=== PATIENT | female | born 1965 | race Caucasian/White ===

== ENCOUNTER 2020-01-31 12:42 | Outpatient (CLI) | payer OTHER | END 2020-01-31 23:59 | disposition home or self-care (01) | LOC: RAD 12:42 | PROVIDERS: ATTEND Nurse Practitioner Family | DX: K21.9 Gastro-esophageal reflux disease without esophagitis (principal); R13.14 Dysphagia, pharyngoesophageal phase | CPT/HCPCS: 74230 ==

== ENCOUNTER 2020-02-09 07:32 | Emergency (ER) | payer OTHER ==
[~2020-02-09] VITALS: Ht 162.6 cm; Wt 54.5 kg
[2020-02-09] MEDS ORDERED: LORA-269 PO (07:59)
[2020-02-09 08:09] VITALS: BP 111/75
== END 2020-02-09 08:11 | disposition home or self-care (01) ==
LOC: ER 07:33
DX: F41.9 Anxiety disorder, unspecified (principal); Z79.899 Other long term (current) drug therapy
CPT/HCPCS: 99283

== ENCOUNTER 2020-04-09 01:03 | Inpatient (IN) | payer OTHER ==
[2020-04-09] VITALS (18 sets, daily range): BP systolic 101–126; BP diastolic 45–79
[~2020-04-09] VITALS: Ht 162.6 cm; Wt 60.5 kg
[~2020-04-09 01:03] MED LIST: LORA-269 PO
[2020-04-09] MEDS ORDERED: fentaNYL/PF 50MCG/1 ML 2ML syringe IV ONE (01:10)
[2020-04-09] MEDS ORDERED: ondansetron/PF 4mg/2ml inj IV ONE (02:05)
[2020-04-09] MEDS ORDERED: morphine 10mg/ml inj. IV ONE (02:05)
[2020-04-09 02:22] LABS: BASOPHILS % (AUTO) 0.4 % (0-1); EOSINOPHILS % (AUTO) 0.1 % (0-6); HEMATOCRIT 37.2 % (35.0-45.0); HEMOGLOBIN 12.3 g/dl (12.0-16.0); LYMPHOCYTES # (AUTO) 0.8 X10'3 (1.1-4.8); LYMPHOCYTES % (AUTO) 6.1 % (21-51); MEAN CORPUSCULAR HEMOGLOBIN 28.1 PG (27.0-31.0); MEAN CORPUSCULAR HGB CONC 33.2 g/dL (33.0-36.5); MEAN CORPUSCULAR VOLUME 84.7 FL (78-98); MEAN PLATELET VOLUME 6.5 FL (7.4-10.4); MONOCYTES # (AUTO) 0.7 X10'3 (0-0.9); NEUTROPHILS # (AUTO) 11.6 X10'3 (1.8-7.7); NEUTROPHILS % (AUTO) 88.4 % (42-75); PLATELET COUNT 296 X10'3 (140-440); RED BLOOD COUNT 4.39 X10'6 (4.20-5.60); RED CELL DISTRIBUTION WIDTH 15.7 % (11.5-14.5); WHITE BLOOD COUNT 13.1 X10'3 (4.5-11.0)
[2020-04-09 02:32] LABS: ALBUMIN 3.6 G/DL (3.4-5.0); ANION GAP 8 (8-16); BLOOD UREA NITROGEN 15 MG/DL (7-18); BUN/CREATININE RATIO 28.3 (6.6-38.0); CALCIUM 8.9 MG/DL (8.5-10.1); CHLORIDE 108 MMOL/L (99-107); CREATININE 0.53 MG/DL (0.40-0.90); GLUCOSE 120 MG/DL (70-104); SODIUM 144 MMOL/L (135-145); TOTAL CARBON DIOXIDE 28.2 MMOL/L (24-32); eGFR > 90 ML/MIN
[2020-04-09] MEDS ORDERED: magnesium Cl slow-release 64mg tablet PO PRN (02:40)
[2020-04-09] MEDS ORDERED: magnesium 2GM in 50ml NS 50 ML IV PRN (02:40)
[2020-04-09] MEDS ORDERED: magnesium 4gm in 100ml NS 100 ML IV PRN (02:40)
[2020-04-09] MEDS ORDERED: potassium Cl 20 mEq SR tablet PO PRN ×2 (02:40)
[2020-04-09] MEDS ORDERED: acetaminophen 325mg tablet PO PRN (02:40)
[2020-04-09] MEDS ORDERED: ondansetron/PF 4mg/2ml inj IV PRN ×2 (02:40→08:05)
[2020-04-09] MEDS ORDERED: potassium Cl 40MEQ/1/2NS 520ml 520 ML IV PRN ×2 (02:40)
[2020-04-09] MEDS ORDERED: ESCI5TAB PO (02:45)
[2020-04-09] MEDS ORDERED: OMEP40CA13 PO (02:46)
[2020-04-09] MEDS: normal saline 1000ml 1,000 ML IV SCH ×3 (03:46→20:39)
[2020-04-09] MEDS: morphine 2 MG/ML inj. syringe IV PRN (03:46)
[2020-04-09 03:57] LABS: CLARITY,URINE CLEAR (Clear); GLUCOSE, URINE NEGATIVE (Neg); KETONES,URINE TRACE mg/dl (Neg); LEUKOCYTE ESTERASE ,URINE TRACE (Neg); NITRITES, URINE NEGATIVE (Neg); OCCULT BLOOD,URINE TRACE-INTACT (Neg); PH,URINE 6.5 (4.8-8.0); PROTEIN,URINE NEGATIVE (Neg); UROBILINOGEN,URINE 0.2 E.U/dL (0.2-1.0)
[2020-04-09 03:59] LABS: COLOR,URINE YELLOW (Yellow); UA COLLECTION TYPE FOLEY CATH
[2020-04-09 04:02] LABS: RBC,URINE 0-2 /HPF (0-2)
[2020-04-09 04:03] LABS: BACTERIA,URINE FEW /HPF (Neg); MUCUS STRANDS FEW /LPF (Neg); SQUAMOUS EPITHELIAL CELL,UR FEW /LPF (FEW)
--- NOTE | 2020-04-09 04:20 | NUR ---
Received report from Jigna BECK from the ER. Patient arrived on the unit at 0420 on a gurney,N.S at 100, room air, a/o, no signs of distress will continue to monitor
[2020-04-09] MEDS ORDERED: HYDROmorphone 1 mg/ml syringe IV ONE (04:55)
--- NOTE | 2020-04-09 06:30 | NUR ---
Patient in room [id number]. I have received report from NIKIA BECK and had the opportunity to ask questions and assume patient care.
--- NOTE | 2020-04-09 06:30 | NUR ---
Patient in room [id number]. I have received report from NIKIA BECK and had the opportunity to ask questions and assume patient care.
[2020-04-09] MEDS: HYDROmorphone 1 mg/ml syringe IV PRN ×3 (07:23→17:52)
[2020-04-09] MEDS: CefTRIAXone/D5W-Rocephin 1gm 50 ML IV SCH (07:23)
[2020-04-09] MEDS ORDERED: pantoprazole 40mg Tablet.DR PO SCH (07:30)
[2020-04-09] MEDS: ESCITALOPRAM OXALATE 5 MG TABLET PO SCH (07:39)
[2020-04-09] MEDS: lansoprazole 15mg solutab PO SCH (07:41)
[2020-04-09] MEDS: K and/or MAG REPLACEMENT MC SCH ×2 (08:00→20:00)
[2020-04-09] MEDS ORDERED: CefTRIAXone/D5W-Rocephin 1gm 50 ML IV SCH (08:00)
[2020-04-09] MEDS ORDERED: morphine 4 MG/ML inj SYRINge IV PRN (08:05)
[2020-04-09] MEDS ORDERED: ringers solution, lacted 1,000 ML IV SCH (08:05)
[2020-04-09] MEDS ORDERED: hydrALAZINE 20mg/ml inj. IV PRN (08:05)
[2020-04-09] MEDS ORDERED: fentaNYL/PF 50MCG/1 ML 2ML syringe IV PRN ×2 (08:05)
[2020-04-09] MEDS ORDERED: ringers solution, lacted 1,000 ML IV ONE (08:05)
[2020-04-09] MEDS ORDERED: labetalol 20mg/4ml (5mg/ml) syringe IV PRN (08:05)
[2020-04-09] MEDS ORDERED: morphine 2 MG/ML inj. syringe IV PRN (08:05)
--- NOTE | 2020-04-09 08:30 | NUR ---
Patient was complaining of pain 12/08, ordered some pain medicaiton for her, she was given medication as ordered and is doing much better 05/08
--- NOTE | 2020-04-09 08:59 | NUR ---
Patient is resting after doing physical assessment. She is unable to move her right leg due to right hip fracture. She has good bilateral pedal pulses, which I forgot to mention on my assessment.
--- NOTE | 2020-04-09 11:12 | NUR ---
Malnutrition consult: Pt reports wt loss with decreased appetite per malnutrition risk screen with RN. Patient's most recent documented wt in EMR is 54.55 kg in January 2020, current documented scaled weight is 60.45 kg (110% IBW). Unable to assess PO intake at this time as pt currently NPO. Pt with no documented decrease in muscle strength or significant edema. Pt appears WDWN per ED report. Pt currently lacks a minimum of two criteria for malnutrition. Will continue to follow. Addendum: 04/09/20 at [address] Amended: Links added.
[2020-04-09] MEDS ORDERED: midazolam 2 mg/2 ml injection ONE (13:52)
[2020-04-09] MEDS ORDERED: fentaNYL/PF 50MCG/1 ML 2ML syringe ONE (13:52)
[2020-04-09] MEDS ORDERED: succinylcholine 20mg/ml inj IV ONE ×2 (13:53→13:58)
[2020-04-09] MEDS ORDERED: propofol inj 20 ML IV ONE (13:58)
[2020-04-09] MEDS ORDERED: LIDOcaine 2% (20mg/ml) 5ml vial ONE (13:58)
[2020-04-09] MEDS ORDERED: ceFAZolin 1000mg inj ONE ×2 (14:11)
--- NOTE | 2020-04-09 15:10 | NUR ---
Received from OR via BED, accompanied by Anesthesiologist DR ALMODOVAR and report given by Anesthesiologist. PT VERY DROWSY, ORAL AIRWAY PLACED BY DR ALMODOVAR, NO S/S OF DISTRESS/DISCOMFORT. RIGHT HIP AND UPPER THIGH W/SMALL TELFA GAUZE DRSG, THIGH DRSG W/SANGUINOUS DRAINAGE. Addendum: 04/09/20 at 1533 by Jenniffer Solano RN Amended: Links added.
--- NOTE | 2020-04-09 16:40 | NUR ---
Report called to receiving nurse. Transferred via BED, NO Belongings. RECEIVING RN AT BEDSIDE TO RECEIVE PT, BLL, CALL LIGHT GIVEN, SIDE RAILS UP X 2. PT ORIENTED TO SELF AND SAFETY. Special Issues communicated to receiving nurse. YES. Addendum: 04/09/20 at 1650 by Jenniffer Solano RN Amended: Links added.
--- NOTE | 2020-04-09 18:08 | NUR ---
Problems reprioritized. Patient report given, questions answered & plan of care reviewed with RAVINDER BECK.
--- NOTE | 2020-04-09 18:32 | NUR ---
I have received report from Nam BECK and had the opportunity to ask questions and assume patient care.
--- NOTE | 2020-04-09 18:45 | NUR ---
Student documentation: I have reviewed and agree with all interventions, assessments performed and documented by VALERIE HARLEY.
[2020-04-09] MEDS: HYDROcodone/acetaminophen 5mg/325mg tablet PO PRN (20:52)
[2020-04-10] VITALS: BP 106/57
[2020-04-10] MEDS: morphine 2 MG/ML inj. syringe IV PRN (02:47)
[2020-04-10 04:00] VITALS: BP 110/53
[2020-04-10] MEDS: normal saline 1000ml 1,000 ML IV SCH (04:53)
[2020-04-10] MEDS: HYDROcodone/acetaminophen 5mg/325mg tablet PO PRN ×2 (04:53→10:18)
[2020-04-10 06:13] LABS: BASOPHILS % (AUTO) 0.3 % (0-1); EOSINOPHILS % (AUTO) 0.1 % (0-6); HEMATOCRIT 33.6 % (35.0-45.0); HEMOGLOBIN 11.2 g/dl (12.0-16.0); LYMPHOCYTES # (AUTO) 1.9 X10'3 (1.1-4.8); LYMPHOCYTES % (AUTO) 17.3 % (21-51); MEAN CORPUSCULAR HEMOGLOBIN 28.2 PG (27.0-31.0); MEAN CORPUSCULAR HGB CONC 33.3 g/dL (33.0-36.5); MEAN CORPUSCULAR VOLUME 84.8 FL (78-98); MONOCYTES # (AUTO) 1.2 X10'3 (0-0.9); MONOCYTES % (AUTO) 10.7 % (2-12); NEUTROPHILS # (AUTO) 7.9 X10'3 (1.8-7.7); NEUTROPHILS % (AUTO) 71.6 % (42-75); PLATELET COUNT 253 X10'3 (140-440); RED BLOOD COUNT 3.97 X10'6 (4.20-5.60); RED CELL DISTRIBUTION WIDTH 16.1 % (11.5-14.5)
[2020-04-10 06:17] LABS: ANION GAP 5 (8-16); BLOOD UREA NITROGEN 9 MG/DL (7-18); BUN/CREATININE RATIO 15.3 (6.6-38.0); CALCIUM 8.4 MG/DL (8.5-10.1); CHLORIDE 108 MMOL/L (99-107); CREATININE 0.59 MG/DL (0.40-0.90); GLUCOSE 103 MG/DL (70-104); MAGNESIUM 1.9 MG/DL (1.5-2.4); POTASSIUM 3.9 MMOL/L (3.5-5.1); SODIUM 141 MMOL/L (135-145); TOTAL CARBON DIOXIDE 27.8 MMOL/L (24-32); eGFR > 90 ML/MIN
--- NOTE | 2020-04-10 06:24 | NUR ---
Problems reprioritized. Patient report given, questions answered & plan of care reviewed with Nam RN.
--- NOTE | 2020-04-10 06:25 | NUR ---
Problems reprioritized. Patient report given, questions answered & plan of care reviewed with Rukhsana BECK.
[2020-04-10 07:06] VITALS: BP 115/58
[2020-04-10] MEDS: K and/or MAG REPLACEMENT MC SCH (08:00)
[2020-04-10] MEDS: ESCITALOPRAM OXALATE 5 MG TABLET PO SCH (08:17)
[2020-04-10] MEDS: CefTRIAXone/D5W-Rocephin 1gm 50 ML IV SCH (08:17)
[2020-04-10] MEDS: lansoprazole 15mg solutab PO SCH (08:17)
[2020-04-10 11:00] VITALS: BP 104/56
[2020-04-10] MEDS ORDERED: HYDR-3972 PO (11:46)
--- NOTE | 2020-04-10 13:00 | NUR ---
Reviewed discharge medications and paperwork with pt. Removed her IV, cannula intact, no s/sx bleeding, pressure bandage applied. Pt. belongings gathered and assisted pt. to get dressed and use the restroom. Changed bandages on hip as they were saturated. Gave pt. extra bandages and instructions on how to care for her dressing/ incision. Written education given on post op care. Pt. given Jose contact information = address and phone number. She knows to f/u with Jose within 2 weeks and to f/u with her PCP. Pt. took her walker with her that was provided for home by CM. Escorted downstairs by a staff member in a w/c. 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
== END 2020-04-10 13:00 | disposition home or self-care (01) | DRG 481 ==
LOC: ER 01:03 → ED HOLD 02:40 → SUR 3N 04:15
PROVIDERS: ADMIT Internal Medicine; ATTEND Family Medicine
PROC: 0QS634Z Reposition Right Upper Femur with Internal Fixation Device, Percutaneous Approach (ICD-10-PCS; principal; 2020-04-09 13:50)
DX: S72.001A Fracture of unspecified part of neck of right femur, initial encounter for closed fracture (principal); N39.0 Urinary tract infection, site not specified; F12.90 Cannabis use, unspecified, uncomplicated; F17.210 Nicotine dependence, cigarettes, uncomplicated; W01.0XXA Fall on same level from slipping, tripping and stumbling without subsequent striking against object, initial encounter; F32.9 Major depressive disorder, single episode, unspecified; K21.9 Gastro-esophageal reflux disease without esophagitis; F41.9 Anxiety disorder, unspecified; Z20.822 Contact with and (suspected) exposure to COVID-19; Z90.710 Acquired absence of both cervix and uterus; Y93.89 Activity, other specified; Y92.098 Other place in other non-institutional residence as the place of occurrence of the external cause; Y99.8 Other external cause status; Z71.6 Tobacco abuse counseling; Z79.899 Other long term (current) drug therapy
CPT/HCPCS: 96375; 99285; Z7506; Z7508; 36415; 71045; 73502; 73503; 76000; 80048; 81001; 82948; 83735; 85025; 85610; 87081; 87635; 93005; 97116; 97161; 97530; 97535; A4618; A7000; C1713; G0378; J0330; J0690; J0696; J1170; J2001; J2250; J2270; J2405; J2704; J3010; J7030; J7120

== ENCOUNTER 2022-03-11 10:46 | Day surgery (SDC) | payer OTHER ==
[2022-03-04 16:01] LABS: BASOPHILS # (AUTO) 0.1 X10'3 (0-0.2); BASOPHILS % (AUTO) 0.5 % (0-1); EOSINOPHILS % (AUTO) 0.4 % (0-6); LYMPHOCYTES # (AUTO) 2.5 X10'3 (1.1-4.8); LYMPHOCYTES % (AUTO) 23.4 % (21-51); MEAN CORPUSCULAR HEMOGLOBIN 28.6 PG (27.0-31.0); MEAN CORPUSCULAR HGB CONC 32.9 g/dL (33.0-36.5); MEAN CORPUSCULAR VOLUME 87.1 FL (78-98); MEAN PLATELET VOLUME 6.7 FL (7.4-10.4); MONOCYTES # (AUTO) 0.8 X10'3 (0-0.9); NEUTROPHILS # (AUTO) 7.1 X10'3 (1.8-7.7); NEUTROPHILS % (AUTO) 67.7 % (42-75); PRE OP HEMATOCRIT 42.4 % (35.0-45.0); PRE OP HEMOGLOBIN 13.9 g/dL (12.0-16.0); PRE OP PLATELET COUNT 369 X10'3 (140-440); RED BLOOD COUNT 4.86 X10'6 (4.20-5.60); RED CELL DISTRIBUTION WIDTH 15.7 % (11.5-14.5)
[2022-03-04 16:08] LABS: ALBUMIN 4.5 G/DL (3.4-5.0); ALBUMIN/GLOBULIN RATIO 1.3 (1.1-1.5); ALKALINE PHOSPHATASE 93 IU/L (46-116); BLOOD UREA NITROGEN 11 MG/DL (7-18); BUN/CREATININE RATIO 14.1 (6.6-38.0); CALCIUM 9.4 MG/DL (8.5-10.1); CHLORIDE 102 MMOL/L (99-107); CREATININE 0.78 MG/DL (0.40-0.90); PRE OP ALT 20 U/L (30-65); PRE OP ANION GAP 8 (8-16); PRE OP AST 14 U/L (10-37); PRE OP BILIRUB, TOTAL 0.5 MG/DL (0.0-1.0); PRE OP GLUCOSE 100 MG/DL (70-104); PRE OP POTASSIUM 3.7 MMOL/L (3.4-5.1); PRE OP SODIUM 139 MMOL/L (135-145); TOTAL PROTEIN 7.9 G/DL (6.4-8.2); eGFR 76 ML/MIN
[~2022-03-11] VITALS: Ht 162.6 cm; Wt 63.5 kg
[2022-03-11] VITALS (10 sets, daily range): BP systolic 126–138; BP diastolic 71–78
[~2022-03-11 10:46] MED LIST changes: +CHLO25CA10 PO; +HYDR-3686 PO; -LORA-269 PO; +PANT40TA54 PO; +RISE35TA13 PO; +ceFAZolin inj. 2,000 MG in dextrose 5%-water 100 ML IV ONE; +famotidine 20mg tablet PO ONE; +ringers solution, lacted 1,000 ML IV SCH
[2022-03-11] MEDS ORDERED: ceFAZolin 1000mg inj ONE (11:14)
[2022-03-11] MEDS ORDERED: mupirocin 2% ointment 22GM ONE (11:14)
[2022-03-11] MEDS ORDERED: bacitracin 15gm ointment TP ONE (11:17)
[2022-03-11] MEDS ORDERED: sevoflurane 250ml liquid IH ONE (12:32)
[2022-03-11] MEDS ORDERED: fentaNYL/PF 50MCG/1 ML 2ML syringe ONE (12:40)
[2022-03-11] MEDS ORDERED: midazolam 1 mg/ML 2ml injection ONE (12:41)
[2022-03-11] MEDS ORDERED: vancomycin 1,000mg inj ONE (13:10)
[2022-03-11] MEDS ORDERED: ROPIVAcaine 0.5% (5mg/ml) 30ml vial ONE (13:10)
[2022-03-11] MEDS ORDERED: dexamethasone sod phosphate 4mg/ml inj. ONE (13:20)
[2022-03-11] MEDS ORDERED: propofol inj 20 ML IV ONE (13:20)
[2022-03-11] MEDS ORDERED: ondansetron/PF 4mg/2ml inj ONE (13:20)
--- NOTE | 2022-03-11 13:49 | NUR ---
RECEIVED REPORT FROM ANESTHESIA, RECEIVED PT IN STABLE CONDITION. PT RESPONDS TO VERBAL STIMULI. IV CHECKED, GOOD PLACEMENT, INFUSING WELL, NO SIGNS OF INFILTRATION. PT HAS LARGE ISLAND DRESSING ON RIGHT HIP, NO DRAINAGE NOTED. PT DENIES PAIN AT THIS TIME.
[2022-03-11] MEDS ORDERED: ringers solution, lacted 1,000 ML IV SCH (13:55)
[2022-03-11] MEDS ORDERED: ondansetron/PF 4mg/2ml inj IV PRN (13:55)
[2022-03-11] MEDS ORDERED: meperidine/PF 25mg/ml syringe IV PRN ×3 (13:55)
[2022-03-11] MEDS ORDERED: morphine 4 MG/ML inj SYRINge IV PRN (13:55)
[2022-03-11] MEDS ORDERED: proCHLORperazine 10 MG/2 ml inj IV PRN (13:55)
[2022-03-11] MEDS ORDERED: morphine 2 MG/ML inj. syringe IV PRN (13:55)
--- NOTE | 2022-03-11 14:05 | NUR ---
PT IS ALERT AND ORIENTED AND TALKING. VITAL SIGNS STABLE. ICE CHIPS AND WATER GIVEN, TOLERATED WELL.
--- NOTE | 2022-03-11 14:39 | NUR ---
PT AT BEDSIDE, DISCHARGE INSTRUCTION DISCUSSED WITH PT AND . ASSISTED PT GETTING DRESSED. PT DENIES NAUSEA OR VOMITING, VERBALIZED UNDERSTANDING OF DISCHARGE INSTRUCTIONS. pT WAS ABLE TO PLACE A SMALL AMOUNT OF WEIGHT ON HER RIGHT LEG WHILE GETTING DRESSED. SHE STATED THAT SHE DID HAVE CRUTCHES AT HOME. DISCHARGE INSTRUCTIONS INCLUDED WEIGHT BEARING TOLERATED. BROUGHT CAR TO THE MAIN ENTRANCE [place] AND BRITNI BECK TOOK PT DOWN IN A WHEELCHAIR.
== END 2022-03-11 14:49 | disposition home or self-care (01) ==
LOC: PAS 10:46
PROVIDERS: ATTEND Orthopaedic Surgery
DX: T84.84XA Pain due to internal orthopedic prosthetic devices, implants and grafts, initial encounter (principal); K21.9 Gastro-esophageal reflux disease without esophagitis; M81.0 Age-related osteoporosis without current pathological fracture; F17.210 Nicotine dependence, cigarettes, uncomplicated; F41.9 Anxiety disorder, unspecified; Z72.89 Other problems related to lifestyle; Z79.899 Other long term (current) drug therapy; Z90.710 Acquired absence of both cervix and uterus; Z98.890 Other specified postprocedural states; Y83.8 Other surgical procedures as the cause of abnormal reaction of the patient, or of later complication, without mention of misadventure at the time of the procedure; Y92.89 Other specified places as the place of occurrence of the external cause
CPT/HCPCS: 20680; 36415; 73502; 76000; 80053; 82948; 85025; 93005; J0690; J1100; J2250; J2405; J2704; J2795; J3010; J3370; J7030; J7060; J7120; Z7506; Z7508; Z7512; A4215; A4618; A6449; A7000

== ENCOUNTER 2022-03-12 08:06 | Emergency (ER) | payer OTHER ==
[~2022-03-12] VITALS: Ht 162.6 cm; Wt 137.0 kg
[~2022-03-12 08:06] MED LIST changes: -ceFAZolin inj. 2,000 MG in dextrose 5%-water 100 ML IV ONE; -famotidine 20mg tablet PO ONE; -ringers solution, lacted 1,000 ML IV SCH
[2022-03-12 08:10] VITALS: BP 134/78
== END 2022-03-12 09:06 | disposition home or self-care (01) ==
LOC: ER 08:06
DX: S71.011A Laceration without foreign body, right hip, initial encounter (principal); L76.22 Postprocedural hemorrhage of skin and subcutaneous tissue following other procedure; K21.9 Gastro-esophageal reflux disease without esophagitis; F41.9 Anxiety disorder, unspecified; F32.9 Major depressive disorder, single episode, unspecified; F17.210 Nicotine dependence, cigarettes, uncomplicated; Z79.899 Other long term (current) drug therapy; X58.XXXA Exposure to other specified factors, initial encounter; Y93.89 Activity, other specified; Y92.89 Other specified places as the place of occurrence of the external cause; Y99.8 Other external cause status
CPT/HCPCS: 12002; 99282; A6449

== ENCOUNTER 2023-08-08 12:29 | Outpatient (CLI) | payer BC | END 2023-08-08 23:59 | disposition home or self-care (01) | LOC: MRI 12:29 | PROVIDERS: ATTEND Family Medicine Sports Medicine | DX: M16.11 Unilateral primary osteoarthritis, right hip (principal); M25.551 Pain in right hip; M25.451 Effusion, right hip; M25.751 Osteophyte, right hip | CPT/HCPCS: 73721 ==